=== PATIENT | male | born 1995 | race Caucasian/White ===

== ENCOUNTER 2021-03-31 08:54 | Emergency (ER) | payer BC, SELFPAY ==
[2021-03-31] MEDS ORDERED: Lidocaine 2% w/Epinephrine 1:200K 20 ML VIAL ONE (09:02)
[2021-03-31] MEDS ORDERED: TETANUS, DIPHTHERIA TOX,ADULT (TDVAX) 0.5 ML VIAL IM ONE (09:32)
== END 2021-03-31 09:53 | disposition home or self-care (01) ==
LOC: BURERS 08:54
DX: S01.511A Laceration without foreign body of lip, initial encounter (principal); F17.200 Nicotine dependence, unspecified, uncomplicated; Y04.2XXA Assault by strike against or bumped into by another person, initial encounter
CPT/HCPCS: 12052; 90471; 90714

== ENCOUNTER 2022-02-11 08:12 | Emergency (ER) | payer SELFPAY ==
[2022-02-11] MEDS ORDERED: Cephalexin 250 MG CAP ONE (09:01)
[2022-02-11] MEDS ORDERED: Dexamethasone 10 MG/ML VIAL ONE (09:01)
== END 2022-02-11 09:25 | disposition home or self-care (01) ==
LOC: BURERS 08:12
DX: L30.3 Infective dermatitis (principal); F17.200 Nicotine dependence, unspecified, uncomplicated
CPT/HCPCS: 99282; J1100

== ENCOUNTER 2023-06-22 23:02 | Emergency (ER) | payer SELFPAY, OTHER ==
[2023-06-22] MEDS ORDERED: Lidocaine/Transparent Dressing 1 EACH KIT ONE (23:16)
[2023-06-22] MEDS ORDERED: HYDROcodone/Acetaminophen 5/325 mg Tablet ONE (23:16)
[2023-06-22] MEDS ORDERED: Silver Sulfadiazine 50 GM JAR ONE (23:16)
[2023-06-22] MEDS ORDERED: HYDROmorphone 0.5 MG/0.5 ML SYRINGE ONE (23:57)
== END 2023-06-23 00:20 | disposition home or self-care (01) ==
LOC: BURERS 23:02
DX: T20.27XA Burn of second degree of neck, initial encounter (principal); T23.201A Burn of second degree of right hand, unspecified site, initial encounter; T23.202A Burn of second degree of left hand, unspecified site, initial encounter; T31.0 Burns involving less than 10% of body surface; X58.XXXA Exposure to other specified factors, initial encounter
CPT/HCPCS: 96372; 99283; J1170

== ENCOUNTER 2024-01-05 09:22 | Outpatient (CLI) | payer OTHER | END 2024-01-05 09:23 | disposition home or self-care (01) | LOC: BURRAD 09:22 | PROVIDERS: ATTEND Nurse Practitioner Family | DX: S59.901A Unspecified injury of right elbow, initial encounter (principal) ==